=== PATIENT | male | born 1955 | race Caucasian/White ===

== ENCOUNTER 2017-11-09 15:36 | Emergency (ER) | payer BC ==
[2017-11-09 16:34] LABS: ANION GAP 13.1; CHLORIDE,CL 102 mmol/L (101-111); SODIUM,NA 137 mmol/L (135-145)
--- NOTE | 2017-11-09 16:51 | EDM.PDOC ---
Scribed by Charlee Richardson 11/09/17 [id number] for Lila Salomon NP ED HPI GENERAL MEDICAL PROBLEM - General Chief Complaint: Chest Pain Stated Complaint: chest pain [id number] Time Seen by Provider: 11/09/17 15:44 Source of Information: Reports: Patient, RN, RN Notes Reviewed History Limitations: Reports: No Limitations - History of Present Illness INITIAL COMMENTS - FREE TEXT/NARRATIVE: Patient presented to ER with complaint of "pressure" in the epigastric area. Patient states he does not have pain, but the pressure began 1 hour prior to arrival. He states he had a heart attack 1-1/2 years ago and had 1 stent placed. He states after he got up and came to the ER the pressure is gone. Onset: Today Duration: Hour(s): (1) Location: Reports: Chest Quality: Reports: Pressure Severity: Mild Improves with: Reports: None Worsens with: Reports: None Associated Symptoms: Reports: No Other Symptoms Mid-Sternal Pain Score (Numeric/FACES): 4 - Related Data Allergies Allergy/AdvReac Type Severity Reaction Status Date / Time rosuvastatin [From Crestor] Allergy Other Verified 11/09/17 15:40 Home Meds: Home Meds Chlorthalidone 1 tab PO DAILY 04/09/13 [History] Doxazosin Mesylate 1 tab PO DAILY 04/09/13 [History] Ibuprofen 600 mg PO Q6HR PRN 04/09/13 [History] Metoprolol Succinate [Toprol XL 50mg] 1 tab PO DAILY 04/09/13 [History] Naproxen [Naprosyn] 3 tab PO ASDIRECTED PRN 04/09/13 [History] Aspirin/Calcium Carbonate/Mag [Aspirin Buffered 325 mg Tab] 1 tab PO DAILY 02/04 [History] Pattison-3S/DHA/Epa/Fish Oil [Fish Oil Pattison-3 Softgel] 1 cap PO DAILY 02/05/16 [ History] Potassium 2 tab PO QID 02/05/16 [History] Clopidogrel [Plavix] 75 mg PO DAILY 04/13/16 [History] Nitroglycerin [Nitrostat] 0.4 mg SL ASDIRECTED PRN 04/13/16 [History] atorvaSTATin Calcium [Atorvastatin Calcium] 80 mg PO DAILY 04/13/16 [History] Past Medical History HEENT History: Reports: Impaired Vision Cardiovascular History: Reports: CAD, High Cholesterol, Hypertension, Stents Respiratory History: Reports: None Gastrointestinal History: Reports: Colon Polyp Genitourinary History: Reports: None Musculoskeletal History: Reports: Arthritis Other Musculoskeletal History: low back and knees bother the most. Neurological History: Reports: None Psychiatric History: Reports: None Endocrine/Metabolic History: Reports: None Hematologic History: Reports: Other (See Below) Other Hematologic History: Hypokalemia Immunologic History: Reports: None Oncologic (Cancer) History: Reports: None Dermatologic History: Reports: None - Infectious Disease History Infectious Disease History: Reports: Chicken Pox, Measles - Past Surgical History Cardiovascular Surgical History: Reports: Carotid Stents Musculoskeletal Surgical History: Reports: Arthroscopic Procedure Social & Family History - Family History Family Medical History: Noncontributory - Caffeine Use Caffeine Use: Reports: Coffee, Tea ED ROS GENERAL - Review of Systems Review Of Systems: ROS reveals no pertinent complaints other than HPI. ED EXAM, GENERAL - Physical Exam Exam: See Below Exam Limited By: No Limitations General Appearance: Alert, WD/WN, No Apparent Distress Eye Exam: Bilateral Eye: EOMI, Normal Inspection, PERRL Ears: Normal External Exam, Normal Canal, Hearing Grossly Normal, Normal TMs Nose: Normal Inspection, Normal Mucosa, No Blood Throat/Mouth: Normal Inspection, Normal Lips, Normal Teeth, Normal Gums, Normal Oropharynx, Normal Voice, No Airway Compromise Head: Atraumatic, Normocephalic Neck: Normal Inspection, Supple, Non-Tender, Full Range of Motion Respiratory/Chest: No Respiratory Distress, Lungs Clear, Normal Breath Sounds, No Accessory Muscle Use, Chest Non-Tender Cardiovascular: Other (murmur x2) GI/Abdominal: Normal Bowel Sounds, Soft, Non-Tender, No Organomegaly, No Distention, No Abnormal Bruit, No Mass (Male) Exam: Deferred Rectal (Males) Exam: Deferred Back Exam: Normal Inspection, Full Range of Motion, NT Extremities: Normal Inspection, Normal Range of Motion, Non-Tender, Normal Capillary Refill, No Pedal Edema Neurological: Alert, Oriented, CN II-XII Intact, Normal Cognition, Normal Gait, Normal Reflexes, No Motor/Sensory Deficits Psychiatric: Normal Affect, Normal Mood Skin Exam: Warm, Dry, Intact, Normal Color, No Rash Lymphatic: No Adenopathy EKG INTERPRETATION EKG Date: 11/09/17 Time: 15:40 Rhythm: Other (sinus rhythm) Rate (Beats/Min): 76 EKG Interpretation Comments: EKG shows left anterior fasicular block. See report. Course - Vital Signs Last Recorded V/S: Last Vital Signs Temp 98.0 F 11/09/17 15:41 Pulse 81 11/09/17 15:41 Resp 12 11/09/17 15:41 BP 151/73 H 11/09/17 15:41 Pulse Ox 98 11/09/17 15:41 - Orders/Labs/Meds Orders: Active Orders 24 hr Category Date Time Status EKG Documentation Completion [RC] STAT Care 11/09/17 15:48 Active Chest 1V Frontal [CR] Stat Exams 11/09/17 15:48 Taken Labs: Laboratory Tests 11/09/17 11/09/17 11/09/17 Range/Units 16:01 16:01 16:01 WBC 9.2 (5.0-10.0) 10^3/uL RBC 4.78 (4.6-6.2) 10^6/uL Hgb 14.1 D (14.0-18.0) g/dL Hct 41.9 (40.0-54.0) % MCV 87.7 (80-100) fL MCH 29.5 (27.0-34.0) pg MCHC 33.7 (33.0-35.0) g/dL Plt Count 216 (150-450) 10^3/uL Neut % (Auto) 63.6 (42.2-75.2) % Lymph % (Auto) 26.1 (20.5-50.1) % Kemper % (Auto) 7.7 (2-8) % Eos % (Auto) 2.4 (1.0-3.0) % Baso % (Auto) 0.2 (0.0-1.0) % PT 9.9 (9.0-12.0) SEC INR 1.0 (0.9-1.2) Sodium 137 (135-145) mmol/L Potassium 3.1 L (3.6-5.0) mmol/L Chloride 102 (101-111) mmol/L Carbon Dioxide 25.0 (21.0-31.0) mmol/L Anion Gap 13.1 BUN 16 (7-18) mg/dL Creatinine 1.0 (0.6-1.3) mg/dL Est Cr Clr Drug Dosing 70.00 mL/min Estimated GFR (MDRD) > 60 BUN/Creatinine Ratio 16.00 Glucose 199 H (74-105) mg/dL Calcium 8.5 (8.4-10.2) mg/dl Total Bilirubin 0.4 (0.2-1.0) mg/dL AST 25 (10-42) IU/L ALT 19 (10-60) IU/L Alkaline Phosphatase 98 (42-121) IU/L Troponin I < 0.02 (0.00-0.02) ng/ml Total Protein 6.3 L (6.7-8.2) g/dl Albumin 3.5 (3.2-5.5) g/dl Globulin 2.8 Albumin/Globulin Ratio 1.25 - Radiology Interpretation Free Text/Narrative:: Chest xray: IMPRESSION: No acute findings Thank you for allowing us to participate in the care of your patient. Dictated and Authenticated by: Florence Sauceda MD 11/09/2017 4:21 PM Central Time ([place] & [place]) See rad report Departure - Departure Time of Disposition: 16:50 Disposition: Home, Self-Care 01 Condition: Fair Clinical Impression: Nonspecific chest pain Instructions: Nonspecific Chest Pain, [id number] Forms: ED Department Discharge Additional Instructions: Return to the ER with any further pressure or pain. Follow up with your primary care facility - My Orders Last 24 Hours: My Active Orders 11/09/17 15:48 EKG Documentation Completion [RC] STAT Chest 1V Frontal [CR] Stat - Assessment/Plan Last 24 Hours: My Active Orders 11/09/17 15:48 EKG Documentation Completion [RC] STAT Chest 1V Frontal [CR] Stat I have read and agree with the documentation that has been completed regarding this visit. By signing this record, I attest that the documentation was completed in my physical presence and is an accurate record of the encounter.
[2017-11-09 16:58] VITALS: BP 134/70
--- NOTE | 2017-11-11 00:27 | EKG ---
11/09/2017 - MONTRELL ADAM - TIME: At 3:40 p.m. FINDINGS: As per my reading, sinus rhythm at 76 with left anterior fascicular block. [facility] /[id number]
--- NOTE | 2017-11-11 00:42 | EKG ---
11/09/2017 - MONTRELL ADAM - TIME: At 5:40 p.m. FINDINGS: Sinus rhythm at 77 and left anterior fascicular block. [facility] /[id number]
== END 2017-11-09 17:04 | disposition home or self-care (01) ==
LOC: DL.ED 15:36
DX: R07.9 Chest pain, unspecified (principal); E78.00 Pure hypercholesterolemia, unspecified; I10 Essential (primary) hypertension; F17.210 Nicotine dependence, cigarettes, uncomplicated; I25.10 Atherosclerotic heart disease of native coronary artery without angina pectoris; Z79.899 Other long term (current) drug therapy
CPT/HCPCS: 36415; 71045; 80053; 84484; 85025; 85610; 93005; 99285

== ENCOUNTER 2021-04-09 11:21 | Emergency (ER) | payer BC, OTHER ==
[2021-04-09 12:02] VITALS: BP 151/87; PULSE 84
[2021-04-09 14:16] LABS: ANION GAP 8.9 mEq/L (7-13); CHLORIDE,CL 104 mmol/L (98-107); SODIUM,NA 139 mmol/L (136-145)
== END 2021-04-09 14:51 | disposition home or self-care (01) ==
LOC: DL.ED 11:21
DX: R42 Dizziness and giddiness (principal); I10 Essential (primary) hypertension; I25.10 Atherosclerotic heart disease of native coronary artery without angina pectoris; E78.00 Pure hypercholesterolemia, unspecified; Z88.8 Allergy status to other drugs, medicaments and biological substances; Z79.82 Long term (current) use of aspirin; Z79.899 Other long term (current) drug therapy; Z95.5 Presence of coronary angioplasty implant and graft
CPT/HCPCS: 36415; 71045; 80053; 84484; 85025; 93005; 99284-25

== ENCOUNTER 2021-09-14 05:15 | Day surgery (SDC) | payer OTHER ==
[2021-09-14] MEDS ORDERED: fentaNYL 100 MCG/2 ML SDV IV ONE ×3 (05:16→06:40)
[2021-09-14] MEDS ORDERED: Midazolam 1 MG/ML 2 ML SDV IV ONE ×3 (05:16→06:42)
[2021-09-14] MEDS ORDERED: Dextrose 5%-0.45% NaCl 1,000 ML IV SCH (05:30)
[2021-09-14] MEDS ORDERED: Midazolam 1 MG/ML 2 ML SDV ONE (06:05)
[2021-09-14] MEDS ORDERED: fentaNYL 100 MCG/2 ML SDV ONE (06:05)
[2021-09-14 08:46] VITALS: BP 138/71; PULSE 76
== END 2021-09-14 08:50 | disposition home or self-care (01) ==
LOC: DL.ENDO 05:15
PROVIDERS: ATTEND Internal Medicine Gastroenterology
DX: R10.13 Epigastric pain (principal); E66.09 Other obesity due to excess calories; I10 Essential (primary) hypertension; E78.00 Pure hypercholesterolemia, unspecified; I25.10 Atherosclerotic heart disease of native coronary artery without angina pectoris; E11.9 Type 2 diabetes mellitus without complications; Z68.34 Body mass index [BMI] 34.0-34.9, adult; Z01.812 Encounter for preprocedural laboratory examination; Z20.822 Contact with and (suspected) exposure to COVID-19
CPT/HCPCS: 43239; 87077; 87635; J2250; J3010; J7042; U0002

== ENCOUNTER 2021-12-17 04:52 | Emergency (ER) | payer OTHER ==
[2021-12-17 05:57] VITALS: BP 141/101; PULSE 84
[2021-12-17 06:15] LABS: ANION GAP 11.5 mEq/L (7-13); CHLORIDE,CL 102 mmol/L (98-107); SODIUM,NA 139 mmol/L (136-145)
[2021-12-17 06:19] LABS: ESTIMATED GFR 72 mL/min (>=60)
[2021-12-17] MEDS ORDERED: predniSONE 20 MG Tab PO ONE (06:35)
== END 2021-12-17 07:36 | disposition home or self-care (01) ==
LOC: DL.ED 04:52
DX: G51.0 Bell's palsy (principal); Z88.8 Allergy status to other drugs, medicaments and biological substances; Z79.899 Other long term (current) drug therapy; Z79.82 Long term (current) use of aspirin; Z20.822 Contact with and (suspected) exposure to COVID-19
CPT/HCPCS: 36415; 70450; 80053; 85025; 85610; 86140; 99284; U0002

== ENCOUNTER → 2023-09-12 | Day surgery (SDC) | payer MEDICARE, BC ==
[~2023-09-12] MED LIST: Midazolam 1 MG/ML 2 ML SDV IV ONE; Midazolam 1 MG/ML 2 ML SDV ONE; fentaNYL 100 MCG/2 ML SDV IV ONE; fentaNYL 100 MCG/2 ML SDV ONE
[2023-09-12] MEDS: fentaNYL 100 MCG/2 ML SDV IV ONE ×2 (07:24→07:25)
[2023-09-12] MEDS: Midazolam 1 MG/ML 2 ML SDV IV ONE ×4 (07:25→07:31)
[2023-09-12 11:48] VITALS: BP 146/83; PULSE 77
== END ==
LOC: DL.ENDO 17:32
PROVIDERS: ATTEND Internal Medicine Gastroenterology
DX: Z12.11 Encounter for screening for malignant neoplasm of colon (principal); D12.2 Benign neoplasm of ascending colon; I10 Essential (primary) hypertension; E78.00 Pure hypercholesterolemia, unspecified; E11.9 Type 2 diabetes mellitus without complications; I25.10 Atherosclerotic heart disease of native coronary artery without angina pectoris; Z85.038 Personal history of other malignant neoplasm of large intestine
CPT/HCPCS: J2250; J3010